=== PATIENT | male | born 1985 | race Caucasian/White ===

== ENCOUNTER 2021-03-11 22:01 | Emergency (ER) | payer BC ==
[2021-03-11 23:09] LABS: HEMOGLOBIN 14.8 gm/dl (14.0-17.5); RED BLOOD COUNT 4.88 M/UL (4.20-5.50); WHITE BLOOD COUNT 9.5 K/UL (4.5-11.0)
[2021-03-11 23:35] LABS: BUN/CREATININE RATIO 12 (0-10)
[2021-03-12] MEDS ORDERED: INDOMETHACIN50 MG PO (03:39)
== END 2021-03-12 04:00 | disposition home or self-care (01) ==
LOC: ER1 22:01
PROVIDERS: Physician Assistant
DX: R07.9 Chest pain, unspecified (principal); Z20.822 Contact with and (suspected) exposure to COVID-19
CPT/HCPCS: 71045; 80053; 82550; 82553; 83874; 84484; 85025; 85379; 85652; 86140; 93005; 99285; U0002